=== PATIENT | female | born 1940 | race African-American/Black ===

== ENCOUNTER 2018-10-29 06:01 | Inpatient (IN) | payer OTHER ==
[~2018-10-29] VITALS: Ht 167.6 cm; Wt 136.1 kg
--- NOTE | ~2018-10-29 | 2DMMODE ---
[facility] [address] [place] [address] 2 D/M-MODE ECHOCARDIOGRAM Name: [place] Room #: 451-P [facility] IN .R.#: [id number] Admission: 10/29/18 Attend Phys: Timothy Garcia, Discharge: Date of : 36 Date of Service: 10/30/18 1034 Report #: [id number] THIS REPORT FOR: //name// APPROVED REPORT Study performed: 10/30/2018 08:28:54 EXAM: Comprehensive 2D, Doppler, and color-flow Echocardiogram Patient Location: In-Patient Room #: 451 Status: routine BSA: 2.35 HR: 70 bpm BP: 138/86 mmHg Other Information Study Quality: Adequate/Technically Difficult Technically limited study due to body habitus. Indications Congestive Heart Failure COPD Diabetes Hypertension/HDD SOA 2D Dimensions RVDd: 48.61 mm IVSd: 17.49 (7-11mm) LVOT Diam: 24.21 (18-24mm) LVDd: 45.41 mm PWd: 17.04 (7-11mm) Ascending Ao: 34.08 (22-36mm) LVDs: 34.73 (25-40mm) Aortic Root: 37.41 mm IVC: 25.00 mm Volumes Left Atrial Volume (Systole) Single Plane 4CH: 45.00 mL Single Plane 2CH: 46.13 mL LA ESV Index: 20.00 mL/m2 Aortic Valve AoV Peak Segun.: 1.19 m/s AO Peak Gr.: 5.67 mmHg LVOT Max P.83 mmHg LVOT Max V: 0.84 m/s VICKEY Vmax: 3.25 cm2 [facility] [address] [address] 2 D/M-MODE ECHOCARDIOGRAM Name: SKANEE, [place] Room #: 451-P [facility] IN ..#: [id number] Admission: 10/29/18 Attend Phys: Timothy Garcia, Discharge: Date of : 36 Date of Service: 10/30/18 1034 Report #: [id number] Vmax: 4.55 m/s AI [place]: 3.05 m/s2 AI PHT: 433.24 ms Mitral Valve E/A Ratio: 0.6 MV Decel. Time: 176.90 ms MV E Max Segun.: 0.58 m/s MV A Segun.: 0.98 m/s MV PHT: 51.30 ms IVRT: 152.25 ms Pulmonary Valve PV Peak Segun.: 0.69 m/s PV Peak Gr.: 1.94 mmHg Pulmonary Vein P Vein S: 0.46 m/s P Vein A: 0.37 m/s P Vein D: 0.62 m/s P Vein A Dur.: 152.2 msec P Vein S/D Ratio: 0.74 Tricuspid Valve TR Peak Segun.: 4.14 m/s RAP Estimate: 10.00 mmHg TR Peak Gr.: 68.49 mmHg PA Pressure: 79.00 mmHg Left Ventricle The left ventricle is normal size. Moderate concentric left ventricular hypertrophy. The left ventricular systolic function is normal. The left ventricular ejection fraction is within the normal range. LVEF is 55%. Transmitral Doppler flow pattern suggests impaired LV relaxation. Right Ventricle Right ventricle is dilated. The right ventricular systolic function is normal. Atria The left atrium size is normal. Right atrium is dilated. Aortic Valve The aortic valve is normal in structure. Mild to moderate aortic regurgitation. There is no aortic valvular stenosis. Mitral Valve The mitral valve is normal in structure. Trace mitral regurgitation. No evidence of mitral valve stenosis. [facility] [address] [place] [address] 2 D/M-MODE ECHOCARDIOGRAM Name: SKANEE, [place] Room #: 451-P [facility] IN .R.#: [id number] Admission: 10/29/18 Attend Phys: Timothy Garcia, Discharge: Date of : 36 Date of Service: 10/30/18 1034 Report #: [id number] Tricuspid Valve The tricuspid valve is normal in structure. Trace to mild tricuspid regurgitation. PAP is estimated at 79 mmHg. Pulmonic Valve Pulmonic valve is not well visualized. Trace to mild pulmonic regurgitation. Great Vessels The aortic root is normal in size. IVC is dilated and collapses >50% with inspiration. Pericardium There is no pericardial effusion. <Conclusion> The left ventricle is normal size. LVEF is 55%. Right ventricle is dilated. Right atrium is dilated. The aortic valve is normal in structure. Mild to moderate aortic regurgitation. The mitral valve is normal in structure. Trace mitral regurgitation. The tricuspid valve is normal in structure. Trace to mild tricuspid regurgitation. PAP is estimated at 79 mmHg. Pulmonic valve is not well visualized. Trace to mild pulmonic regurgitation. There is no pericardial effusion. <ELECTRONICALLY SIGNED> By: Emanuel Haley MD 10/30/18 1034 1034 1034 Emanuel Haley MD /INF
--- NOTE | ~2018-10-29 | EKG ---
[address] [address] ELECTROCARDIOGRAM REPORT Name: HUGO DUMONT Room #: 451-P ADM IN M.R.#: [id number] Admission: 10/29/18 Attend Phys: Timothy Garcia MD Discharge: Date of : 36 Report #: [id number] THIS REPORT FOR: //name// [facility] ED Test Date: 2018-10-29 Test Time: 06:40:12 Pat Name: HUGO DUMONT Department: Room: [facility] Gender: F Armored Car Guard: GISEL : 1940 Requested By: Sonido Covington Order Number: [id number] MD: Hesham Banuelos Measurements Intervals [place] Rate: 80 P: -38 IA: 170 QRS: 22 QRSD: 114 T: 0 QT: 383 QTc: 442 Interpretive Statements Sinus rhythm Borderline intraventricular conduction delay Borderline T abnormalities, diffuse leads No previous ECG available for comparison Electronically Signed On 10-29-2018 10:31:07 JEWISH HISTORY PROFESSOR by Hesham Banuelos [email or web address] <ELECTRONICALLY SIGNED> By: Hesham Banuelos MD 10/29/18 1031 0640 0640 Hesham Banuelos MD /MADIHA
[2018-10-29 06:02] VITALS: BP 175/89
[2018-10-29] MEDS ORDERED: METFORMIN HCL500 MG PO (06:46)
[2018-10-29] MEDS ORDERED: ASPIR 8181 MG PO (06:47)
[2018-10-29] MEDS ORDERED: ZOLOFT25 MG PO (06:47)
[2018-10-29] MEDS ORDERED: COREG6.25 MG PO (06:48)
[2018-10-29] MEDS ORDERED: SILDENAFIL20 MG PO (06:49)
[2018-10-29] MEDS ORDERED: LISINOPRIL20 MG PO (06:49)
[2018-10-29] MEDS ORDERED: LASIX 40 MG TAB40 M2 PO (06:50)
[2018-10-29] MEDS ORDERED: NORVASC2.5 MG PO (06:52)
[2018-10-29 07:02] LABS: ABSOLUTE NEUTROPHILS 7.9 thou/uL (1.4-8.2); BASOPHILS 0.5 % (0.0-2.0); EOSINOPHILS 2.2 % (0.0-3.0); HEMOGLOBIN 12.9 gm/dL (12.0-15.0); LYMPHOCYTES 10.9 % (24.0-44.0); MCHC 31.4 g/dL (28.0-37.0); MCV 89.2 fL (80.0-100.0); MONOCYTES 6.8 % (1.0-8.0); POLYS 79.6 % (36.0-66.0); RBC 4.59 mil/uL (4.20-5.00); RDW 16.7 % (10.5-14.5); WBC 9.9 thou/uL (4.0-11.0)
[2018-10-29 07:04] LABS: URINE BILIRUBIN NEGATIVE (Negative); URINE BLOOD NEGATIVE (Negative); URINE CLARITY CLEAR; URINE COLOR YELLOW; URINE GLUCOSE-RANDOM* 1+ (Negative); URINE KETONES NEGATIVE (Negative); URINE LEUKOCYTES-REFLEX NEGATIVE (Negative); URINE NITRITE-REFLEX NEGATIVE (Negative); URINE PROTEIN (DIPSTICK) NEGATIVE (Negative); URINE UROBILINOGEN 0.2 E.U./dl (0.2-1.0)
[2018-10-29 07:10] LABS: ANION GAP 1 mmol/L (7-16); BUN 18 mg/dL (7-18); CALCIUM 9.7 mg/dL (8.5-10.1); CHLORIDE 102 mmol/L (98-107); CO2 36 mmol/L (21-32); CREATININE 0.8 mg/dL (0.6-1.0); GLUCOSE 268 mg/dL (74-106); POTASSIUM 4.9 mmol/L (3.5-5.1); SODIUM 139 mmol/L (136-145)
[2018-10-29 07:18] LABS: ALBUMIN 3.1 g/dL (3.4-5.0); SGOT 19 U/L (15-37); SGPT 40 U/L (30-65); TOTAL BILIRUBIN 0.2 mg/dL (<0.1-1.0); TROPONIN-I <0.06 ng/mL (<0.06)
[2018-10-29 08:16] LABS: PLATELET COUNT 185 thou/uL (150-400)
[2018-10-29 08:17] LABS: ANISOCYTOSIS 1+
[2018-10-29] MEDS ORDERED: LEVAQUIN 500 M500 MG PO (08:40)
[2018-10-29 09:26] VITALS: BP 183/74
[2018-10-29 09:54] VITALS: BP 182/78
[2018-10-29 11:00] LABS: ALBUMIN 3.1 g/dL (3.4-5.0)
[2018-10-29 11:26] LABS: TSH 2.065 uIU/mL (0.358-3.740)
[2018-10-29 16:00] VITALS: BP 156/75
[2018-10-29 19:41] VITALS: BP 139/45
[2018-10-30 03:31] VITALS: BP 138/86
[2018-10-30 04:24] LABS: CALCIUM 9.3 mg/dL (8.5-10.1); CREATININE 0.9 mg/dL (0.6-1.0); MAGNESIUM 1.7 mg/dL (1.8-2.4); POTASSIUM 4.2 mmol/L (3.5-5.1)
[2018-10-30 04:26] LABS: HEMATOCRIT 38.5 % (37.0-47.0); MCH 27.7 pg (26.0-34.0); MCHC 31.3 g/dL (28.0-37.0); MCV 88.5 fL (80.0-100.0); RBC 4.34 mil/uL (4.20-5.00); RDW 16.2 % (10.5-14.5)
[2018-10-30 08:21] VITALS: BP 135/80
[2018-10-30 14:51] VITALS: BP 132/55
[2018-10-30 19:33] VITALS: BP 127/95
[2018-10-31 03:26] VITALS: BP 136/36
[2018-10-31 06:16] LABS: HEMATOCRIT 36.3 % (37.0-47.0); HEMOGLOBIN 11.5 gm/dL (12.0-15.0); MCH 27.8 pg (26.0-34.0); MCHC 31.8 g/dL (28.0-37.0); MCV 87.4 fL (80.0-100.0); RBC 4.15 mil/uL (4.20-5.00); RDW 15.7 % (10.5-14.5); WBC 8.9 thou/uL (4.0-11.0)
[2018-10-31 06:27] LABS: CALCIUM 9.2 mg/dL (8.5-10.1); CREATININE 0.9 mg/dL (0.6-1.0); MAGNESIUM 1.9 mg/dL (1.8-2.4); POTASSIUM 4.2 mmol/L (3.5-5.1)
[2018-10-31 07:23] VITALS: BP 119/48
[2018-10-31 15:32] VITALS: BP 118/45
[2018-10-31 19:00] VITALS: BP 111/54
[2018-11-01 03:18] VITALS: BP 132/62
[2018-11-01 04:32] LABS: CALCIUM 9.3 mg/dL (8.5-10.1); MAGNESIUM 1.8 mg/dL (1.8-2.4); POTASSIUM 4.5 mmol/L (3.5-5.1)
[2018-11-01 04:44] LABS: HEMATOCRIT 37.6 % (37.0-47.0); HEMOGLOBIN 11.5 gm/dL (12.0-15.0); MCH 27.1 pg (26.0-34.0); MCHC 30.4 g/dL (28.0-37.0); MCV 88.9 fL (80.0-100.0); RBC 4.24 mil/uL (4.20-5.00); RDW 15.6 % (10.5-14.5); WBC 8.1 thou/uL (4.0-11.0)
[2018-11-01 07:05] VITALS: BP 107/95
[2018-11-01] MEDS ORDERED: LASIX 40 MG TAB40 M2 PO (13:50)
[2018-11-01 14:55] VITALS: BP 111/57
== END 2018-11-01 16:46 | DRG 193 ==
LOC: ER 06:01 → EDSEX 06:01 → EDBD 06:01 → 4W 08:56 → EROBS 08:56 → 4W 10:11
PROVIDERS: Emergency Medicine; Internal Medicine
DX: J18.9 Pneumonia, unspecified organism (principal); J96.21 Acute and chronic respiratory failure with hypoxia; J44.0 Chronic obstructive pulmonary disease with (acute) lower respiratory infection; J98.11 Atelectasis; I50.30 Unspecified diastolic (congestive) heart failure; E11.9 Type 2 diabetes mellitus without complications; I11.0 Hypertensive heart disease with heart failure; F32.9 Major depressive disorder, single episode, unspecified; M62.84 Sarcopenia; I27.20 Pulmonary hypertension, unspecified; E83.42 Hypomagnesemia; E53.8 Deficiency of other specified B group vitamins; Z87.891 Personal history of nicotine dependence; Z99.81 Dependence on supplemental oxygen; Z79.82 Long term (current) use of aspirin; Z79.84 Long term (current) use of oral hypoglycemic drugs; Z79.899 Other long term (current) drug therapy
CPT/HCPCS: 10045

== ENCOUNTER 2019-08-13 02:19 | Inpatient (IN) | payer OTHER ==
[2019-08-13] VITALS (8 sets, daily range): BP systolic 99–144; BP diastolic 50–76
[~2019-08-13] VITALS: Ht 165.1 cm; Wt 140.1 kg
[~2019-08-13 02:19] MED LIST: ASPIR 8181 MG PO; COREG6.25 MG PO; LASIX 40 MG TAB40 M2 PO; LEVAQUIN 500 M500 MG PO; LISINOPRIL20 MG PO; METFORMIN HCL500 MG PO; NORVASC2.5 MG PO; SILDENAFIL20 MG PO; ZOLOFT25 MG PO
[2019-08-13] MEDS ORDERED: LIPITOR 20 MG T20 M1 PO (02:38)
[2019-08-13] MEDS ORDERED: ADVAIR HFA 230M12 GM INH (02:39)
[2019-08-13] MEDS ORDERED: INCRUSE ELLI62.5 MCG INH (02:40)
[2019-08-13] MEDS ORDERED: MELATONIN5 M1 PO (02:41)
[2019-08-13] MEDS ORDERED: SALINE MIST44 ML INH (02:42)
[2019-08-13] MEDS ORDERED: LANTUS100 UNIT/M SUBQ (02:43)
[2019-08-13] MEDS ORDERED: MIDODRINE HCL 55 M1 PO (02:44)
[2019-08-13] MEDS ORDERED: BIOFREEZE118 ML TOP (02:46)
[2019-08-13] MEDS ORDERED: VITAMIN A & D OI5 GM TOP (02:46)
[2019-08-13 02:47] LABS: ABSOLUTE NEUTROPHILS 8.1 thou/uL (1.4-8.2); BASOPHILS 0.7 % (0.0-2.0); EOSINOPHILS 0.9 % (0.0-3.0); HEMATOCRIT 39.8 % (37.0-47.0); HEMOGLOBIN 12.1 gm/dL (12.0-15.0); LYMPHOCYTES 12.8 % (24.0-44.0); MCH 28.2 pg (26.0-34.0); MCHC 30.5 g/dL (28.0-37.0); MCV 92.6 fL (80.0-100.0); MONOCYTES 7.4 % (1.0-8.0); PLATELET COUNT 225 thou/uL (150-400); POLYS 78.2 % (36.0-66.0); RDW 17.7 % (10.5-14.5); WBC 10.3 thou/uL (4.0-11.0)
[2019-08-13] MEDS ORDERED: EUCERIN ECZEMA226 GM TOP (02:47)
[2019-08-13] MEDS ORDERED: POTASSIUM20 PO (02:48)
[2019-08-13] MEDS ORDERED: ALBUTEROL2.5 MG/3 M INH (02:49)
[2019-08-13 02:50] LABS: HCO3 28.3 mmol/L (22.0-26.0); PCO2 51.4 mmHg (35.0-45.0); PO2 98.2 mmHg (80.0-100.0); pH 7.359 (7.360-7.450); sO2 97.1 % (92.0-98.0)
[2019-08-13] MEDS ORDERED: MYVITALIFE1 EACH PO (02:50)
[2019-08-13] MEDS ORDERED: VITAMINC500 PO (02:50)
[2019-08-13] MEDS ORDERED: PROAIR HFA8.5 GM (02:52)
[2019-08-13 02:54] LABS: CALCIUM 9.4 mg/dL (8.5-10.1); CREATININE 1.8 mg/dL (0.6-1.0); POTASSIUM 5.1 mmol/L (3.5-5.1)
[2019-08-13] MEDS ORDERED: HUMALOG100 UNIT/1 SUBQ (02:54)
[2019-08-13] MEDS ORDERED: MIRALAX17 GM PO (02:55)
[2019-08-13] MEDS ORDERED: SENNA8.6 MG PO (02:55)
[2019-08-13] MEDS ORDERED: TYLENOL EXTRA500 MG PO (02:57)
[2019-08-13] MEDS ORDERED: TYLENOL325 MG PO (02:58)
[2019-08-13] MEDS ORDERED: METOLAZONE 2.52.5 M1 PO (02:59)
[2019-08-13 03:03] LABS: TROPONIN-I 0.07 ng/mL (<0.06)
[2019-08-13 04:38] LABS: ANISOCYTOSIS 2+
--- NOTE | 2019-08-13 07:20 | NUR ---
PT ARRIVED UNIT at about 0545. PT A/OX4, VITAL SIGNS STABLE, ON 5 L O2, ASSESSMENT CHARTED. PT SEEMED TO BE DOING BETTER AND DID NOT NEED THE BIPAP. ADMISSION COMPLETED, PT RESTING COMFORTABLY IN BED.
--- NOTE | 2019-08-13 08:02 | EKG ---
[address] [place] [address] ELECTROCARDIOGRAM REPORT Name: HUGO DUMONT Room #: 216-P ADM IN M.R.#: [id number] ������������������ Admission: 08/13/19 ������������������ Attend Phys: Jaguar Sandoval MD Discharge: ������������������ Date of : 36 Report #: [id number] ����������������������������������������������������������������� [id number] THIS REPORT FOR: //name// [facility] ED Test Date: 2019-08-13 Test Time: 02:37:08 Pat Name: HUGO DUMONT Department: Room: 216 Gender: F School Bus Dispatcher: ELISSA : 1940 Requested By: Sonido Woods Order Number: [id number] MD: Paul Lopez Measurements Intervals [place] Rate: 82 P: -23 HI: 153 QRS: 132 QRSD: 113 T: -19 QT: 414 QTc: 484 Interpretive Statements Sinus rhythm Atrial premature complex Borderline intraventricular conduction delay Consider right ventricular hypertrophy Borderline T abnormalities, anterior leads Borderline prolonged QT interval Baseline wander in lead(s) V2 Compared to ECG 10/29/2018 06:40:12 Atrial premature complex(es) now present T-wave abnormality still present Electronically Signed On 08-13-2019 8:02:16 CDT by Paul Lopez [email or web address] ��������������������������������������������� <ELECTRONICALLY SIGNED> ���������������������������������������� By: Paul Lopez MD ��������������������������������������������� 08/13/19 0802 6 6 Paul Lopez MD /EPI
--- NOTE | 2019-08-13 11:11 | 2DMMODE ---
[facility] [address] [place] [address] 2 D/M-MODE ECHOCARDIOGRAM Name: [place], [place] Room #: 216-P ADM IN M.R.#: [id number] ������������� Admission: 08/13/19 ������������� Attend Phys: Jaguar Sandoval MD Discharge: ��� ������������� ��� Date of : 36 Date of Service: 08/13/19 1111 �� Report #: [id number] �������� ��������������������������������������������[id number] THIS REPORT FOR: //name// APPROVED REPORT Study performed: 08/13/2019 10:00:03 EXAM: Comprehensive 2D, Doppler, and color-flow Echocardiogram Patient Location: Bedside Room #: 216 Status: routine BSA: 2.26 HR: 81 bpm BP: 144/62 mmHg Rhythm: NSR Other Information Study Quality: Fair Technically limited study due to body habitus. Indications Congestive Heart Failure COPD Pulmonary Hypertension Diabetes Dyspnea 2D Dimensions RVDd: 59.82 mm IVSd: 18.97 (7-11mm) LVOT Diam: 23.59 (18-24mm) LVDd: 34.62 mm PWd: 18.42 (7-11mm) Ascending Ao: 35.66 (22-36mm) LVDs: 25.58 (25-40mm) Aortic Root: 40.18 mm IVC: 31.00 mm Volumes Left Atrial Volume (Systole) Single Plane 4CH: 70.31 mL Single Plane 2CH: 65.57 mL LA ESV Index: 33.00 mL/m2 Aortic Valve AoV Peak Segun.: 1.23 m/s AO Peak Gr.: 6.32 mmHg LVOT Max P.06 mmHg LVOT Max V: 0.87 m/s [facility] [address] [place] [address] 2 D/M-MODE ECHOCARDIOGRAM Name: SUCCESS, [place] Room #: 216-P ADM IN .R.#: [id number] ������������� Admission: 08/13/19 ������������� Attend Phys: Jaguar Sandoval MD Discharge: ��� ������������� ��� Date of : 36 Date of Service: 08/13/19 1111 �� Report #: [id number] �������� ��������������������������������������������[id number] VICKEY Vmax: 3.09 cm2 Mitral Valve E/A Ratio: 0.7 MV Decel. Time: 226.43 ms MV E Max Segun.: 0.56 m/s MV A Segun.: 0.83 m/s MV PHT: 65.67 ms IVRT: 138.41 ms Pulmonary Valve PV Peak Segun.: 0.80 m/s PV Peak Gr.: 2.59 mmHg Pulmonary Vein P Vein S: 0.30 m/s P Vein A: 0.26 m/s P Vein D: 0.18 m/s P Vein A Dur.: 96.9 msec P Vein S/D Ratio: 1.67 Tricuspid Valve TR Peak Segun.: 4.17 m/s TR Peak Gr.: 69.64 mmHg PA Pressure: 80.00 mmHg Left Ventricle The left ventricle is normal size. There is normal LV segmental wall motion. Mild concentric left ventricular hypertrophy. The left ventricular systolic function is normal. The left ventricular ejection fraction is within the normal range. LVEF is 55-60%. Grade I - abnormal relaxation pattern. Right Ventricle Right ventricle is dilated. The right ventricular systolic function is normal. Atria Left atrium is at the upper limits of normal. Right atrium is dilated. Aortic Valve The aortic valve is normal in structure. Trace to mild aortic regurgitation. There is no aortic valvular stenosis. Mitral Valve The mitral valve is normal in structure. Trace to mild mitral regurgitation. No evidence of mitral valve stenosis. [facility] [address] [place] [address] 2 D/M-MODE ECHOCARDIOGRAM Name: SUCCESS, [place] Room #: 216-P ADM IN M.R.#: [id number] ������������� Admission: 08/13/19 ������������� Attend Phys: Jaguar Sandoval MD Discharge: ��� ������������� ��� Date of : 36 Date of Service: 08/13/19 1111 �� Report #: [id number] �������� ��������������������������������������������[id number] Tricuspid Valve The tricuspid valve is normal in structure. There is moderate tricuspid regurgitation. Estimated PAP 80 mmmHg. There is severe pulmonary hypertension. Pulmonic Valve The pulmonary valve is normal in structure. Trace pulmonic regurgitation. Great Vessels The aortic root is normal in size. IVC is dilated and collapses <50% with inspiration. Pericardium There is no pericardial effusion. <Conclusion> The left ventricle is normal size. LVEF is 55-60%. Right ventricle is enlarged. The right ventricular systolic function is normal. Right atrium is dilated. The aortic valve is normal in structure. Trace to mild aortic regurgitation. The mitral valve is normal in structure. Trace to mild mitral regurgitation. The tricuspid valve is normal in structure. There is moderate tricuspid regurgitation. Estimated PAP 80 mmmHg. There is severe pulmonary hypertension. The pulmonary valve is normal in structure. Trace pulmonic regurgitation. There is no pericardial effusion. ��������������������������������������������� <ELECTRONICALLY SIGNED> ���������������������������������������� By: Emanuel Haley MD ��������������������������������������������� 08/13/19 1111 1111 1111 Emanuel Haley MD /INF
--- NOTE | 2019-08-13 16:18 | NUR ---
FAXED CLINICAL UPDATE TO [facility] SPOKE WITH JENNYFER IN ADM SHE RECEIVED UPDATE. DCP TO FOLLOW.
--- NOTE | 2019-08-13 17:18 | NUR ---
met with patient who is A/Ox4. She resides in ltc at [facility], she uses oxygen at facility. Left message with son Tom regarding to call [employer]em[employer]. Plan return to once stable.
[2019-08-14 00:32] VITALS: BP 99/58
[2019-08-14 04:33] VITALS: BP 126/46
--- NOTE | 2019-08-14 05:12 | NUR ---
ASSUMED PT CARE AT 1900. PT IS ALERT AND ORINETED WITH NO SIGN OF DISTRESS NOTED IN PT. PT IS SITTING IN CHAIR RESTING COMFORTABLY. TYELENOL ADMINISTERED FOR COMPLAINTS OF PAIN. ASSESSMENT COMPLETED AND CHARTED. SCHEDULED MEDS ADMINISTERED TO PT. PT TOLERATED PO INTAKE. PT IS TRANSFERED FROM CHAIR TO BED. BIPAP IS PLACED ON PT BEFORE BEDTIME. PT IS STABLE THROUGHOUT THE NIGHT. NO FURTHER NEEDS AT THIS TIME.
[2019-08-14 05:50] LABS: ABSOLUTE NEUTROPHILS 5.2 thou/uL (1.4-8.2); BASOPHILS 0.6 % (0.0-2.0); EOSINOPHILS 3.9 % (0.0-3.0); HEMATOCRIT 34.7 % (37.0-47.0); HEMOGLOBIN 10.6 gm/dL (12.0-15.0); LYMPHOCYTES 17.2 % (24.0-44.0); MCH 28.2 pg (26.0-34.0); MCHC 30.6 g/dL (28.0-37.0); MCV 92.1 fL (80.0-100.0); MONOCYTES 8.1 % (1.0-8.0); PLATELET COUNT 194 thou/uL (150-400); POLYS 70.2 % (36.0-66.0); RBC 3.77 mil/uL (4.20-5.00); RDW 16.6 % (10.5-14.5); WBC 7.5 thou/uL (4.0-11.0)
[2019-08-14 06:11] LABS: CALCIUM 9.3 mg/dL (8.5-10.1); CREATININE 1.5 mg/dL (0.6-1.0); POTASSIUM 4.4 mmol/L (3.5-5.1)
[2019-08-14 08:15] VITALS: BP 109/61
--- NOTE | 2019-08-14 10:07 | NUR ---
ASSUMED CARE OF PT APPROX 0715, SHE IS A&0X4, AMB CLOSE SBA D/T WEAKNESS AND BLE EDEMA. DIURESING SO FREQ URINATION. RETRIEVING LARGER BSC FOR PT'S COMFORT ONE IN ROOM IN EXTRA SMALL. SHE USES CALL LIGHT FOR NEEDS AND IS CARDIAC MONITORED. WILL CONTINUE TO MONITOR. SEE SEPARATE INTERVENTIONS FOR ASSESSMENTS. ENCOURAGED PT TO USE CALL LIGHT FOR ANY NEEDS
[2019-08-14 11:17] VITALS: BP 107/49
--- NOTE | 2019-08-14 13:52 | NUR ---
Spoke with son cont plan return to [facility] once stable.
[2019-08-14 16:25] VITALS: BP 116/60
[2019-08-14 19:17] VITALS: BP 118/59
[2019-08-15 04:16] VITALS: BP 118/56
[2019-08-15 06:44] LABS: CREATININE 1.4 mg/dL (0.6-1.0); POTASSIUM 4.4 mmol/L (3.5-5.1)
[2019-08-15 07:45] VITALS: BP 150/75
--- NOTE | 2019-08-15 09:56 | NUR ---
PT ASSTED UP TO BSC PRN, PLACED ON BIPAP AT HS, RESTED COMFORTABLY EXCEPT FOR C/O BILATERAL SHOULDER PAIN SHE STATES IS CHRONIC, PRN TYLENOL GIVEN, VSS, LE WRAPPED IN GAUZE AND IRMA WRAPS, REPORT GIVEN TO NEXT SHIFT TO CON'T WITH PPOC.
[2019-08-15 11:00] VITALS: BP 104/57
--- NOTE | 2019-08-15 16:08 | NUR ---
ASSUMMED PT CARE AT APPROXIMATELY 0700. ASSESSMENT CHARTED. A&O X4. FALL PRECAUTIONS IN PLACE. VITAL SIGNS STABLE. BLOOD SUGARS STABLE. PT DENIES BEING SOB. PT DENIES HAVING CHEST PAIN. PT STATED HER SHOULDER HAD ACUTE PAIN. PT RECEIVED ANALGESICS AND PT STATED ANALGESICS RELIEVED PAIN. PT EDUCATED ON POC. PT STATED UNDERSTANDING AND DENIED FURTHER QUESTIONS. PT UP IN CHAIR THROUGHOUT SHIFT. PT AMBULATES STEADY WITH ASSIST X1. PT RECEIVED CONSULT FOR PT/OT TODAY. PT RECEIVED NEW LYPHEDEMA WRAPS ON LEGS. PT COMFORTABLE IN CHAIR. PT DENIES HAVING FURTHER CONCERNS.
[2019-08-15 17:35] VITALS: BP 110/60
[2019-08-15 20:41] VITALS: BP 108/57
--- NOTE | 2019-08-16 04:49 | NUR ---
Assumed care of pt at 1900. Pt was in chair until 2300. Pt will use BSC with t8pdfeal. Pt tried sleeping in bed with cpap but wanted to go back to chair and she slept thru night. Pt complained of bilateral shoulder pain gave medication and pt had partial pain relief. Will continue to monitor pt and follow poc.
[2019-08-16 05:03] VITALS: BP 101/6
[2019-08-16 05:32] LABS: CALCIUM 9.5 mg/dL (8.5-10.1); CREATININE 1.1 mg/dL (0.6-1.0); POTASSIUM 4.5 mmol/L (3.5-5.1)
[2019-08-16 08:00] VITALS: BP 108/69; BP 119/67
[2019-08-16 12:00] VITALS: BP 99/55
--- NOTE | 2019-08-16 13:40 | NUR ---
FAXED REFERRAL TO [facility] FOR SKILLED STAY THEN TRANSITION BACK TO LTC SPOKE WITH JENNYFER IN ADM SHE RECEIVED REFERRAL AND WILL REVIEW, DCP TO FOLLOW.
--- NOTE | 2019-08-16 14:44 | NUR ---
Admissions at [facility] updated[facility] [place] [employer] to fax update to admissions. They will contact the pt's ins plan for ins auth. PT/OT seeing the pt. Pt getting her bilat lower ext wrapped d/t edema. Pt was getting kerlix and hector wraps to her legs at the SNF. Will follow.
[2019-08-16 14:59] VITALS: BP 108/62
[2019-08-16 16:00] VITALS: BP 128/63
--- NOTE | 2019-08-16 16:36 | NUR ---
FAXED REFERRAL TO SKILLED STAY AT [facility] SPOKE WITH JENNYFER IN ADM SHE RECEIVED REFERRAL AND WILL REVIEW AND TO SUBMIT FOR AUTH IF THEY CAN ACCEPT. DCP TO FOLLOW
--- NOTE | 2019-08-16 17:35 | NUR ---
ASSUMED PT CARE AT APPROXIMATELY 0700. PT A&O X4. FALL PRECAUTIONS IN PLACE. ASSESSMENT CHARTED. VITAL SIGNS STABLE. BLOOD SUGARS STABLE. PT DENIED HAVING CHEST PAIN. PT DENIED HAVING SOB. PT HAD A HEADACHE THROUGHOUT THE DAY. PT RECEIVED ANALGESICS. PT STATED ANALGESICS DECREASED PAIN. PT AMBULATES WITH ASSIST X1-STEADY TO THE COMMODE. PT RECEIVED NEW LYPHEDEMA WRAPS TODAY. PT UP IN CHAIR THROUGHOUT SHIFT. PT EDUCATED ABOUT POC. PT STATED UNDERSTANDING AND DENIED HAVING FURTHER QUESTIONS.
[2019-08-16 19:36] VITALS: BP 113/59
[2019-08-17 04:40] VITALS: BP 108/85
--- NOTE | 2019-08-17 04:41 | NUR ---
ASSUMED PT CARE AT 1900. PT SLEPT IN BED WITH CPAP FOR MAJORITY OF NIGHT WITH NO ISSUE. PT C/O PAIN IN BACK AND SHOULDERS GAVE PAIN MED WITH PARTIAL RELIEF. PT HAS HAD STABLE VS. PT IS PROGRESSING TOWARDS POC AND WILL CONTINUE TO MONITOR
[2019-08-17 05:44] LABS: HEMATOCRIT 38.8 % (37.0-47.0); HEMOGLOBIN 11.8 gm/dL (12.0-15.0); MCH 28.3 pg (26.0-34.0); MCHC 30.4 g/dL (28.0-37.0); MCV 93.2 fL (80.0-100.0); RBC 4.17 mil/uL (4.20-5.00); RDW 17.8 % (10.5-14.5); WBC 7.6 thou/uL (4.0-11.0)
[2019-08-17 06:08] LABS: CALCIUM 9.2 mg/dL (8.5-10.1); CREATININE 1.2 mg/dL (0.6-1.0); MAGNESIUM 1.5 mg/dL (1.8-2.4); POTASSIUM 4.5 mmol/L (3.5-5.1)
[2019-08-17 07:35] VITALS: BP 106/47
[2019-08-17 13:32] VITALS: BP 121/59
--- NOTE | 2019-08-17 15:29 | NUR ---
Possible weekend dc to snf anticipated. All parties updated including the pt's dtr Elaine. [facility] has insurance auth for skilled stay and can accept Tue or Tuesday. They will need report called to [phone] and orders faxed to [phone]. W/c van transport with O2 can be arranged thru [employer] [phone] billable to [facility]. Chart copy and orders will need to be sent with the pt and family notified.
[2019-08-17 16:10] VITALS: BP 109/58
--- NOTE | 2019-08-17 18:00 | NUR ---
ASSUMED CARE OF PT AT SHIFT CHANGE. ASSESSMENTS CHARTED. MEDS GIVEN PER JAN. VSS. A&OX4. C/O HEADACHE TREATED WITH PO MEDS. USES BEDPAN WHILE IN CHAIR. X1 ASSIST. LEGS WRAPPED D/T EDEMA. ON 4L OF O2. NO C/O SOA. WILL CONTINUE TO MONITOR AND FOLLOW POC.
[2019-08-17 20:00] VITALS: BP 115/61
[2019-08-18] VITALS: BP 114/69
[2019-08-18 04:00] VITALS: BP 104/50
--- NOTE | 2019-08-18 05:11 | NUR ---
A/O X 4.UP WITH ASSIST X 1 TO THE BEDSIDE COMMODE.STILL COMPLAIN OF HEADACHE AFTER TYLENOL WAS GIVEN.IBUPROFEN GIVEN ORDERED.PATIENT IS HOPING TO HAVE A BM THIS SHIFT.MIRALAX GIVEN.NO RESULT YET SO FAR.MONITOR SHOWS SR.WILL CONTINUE POC.
[2019-08-18 07:57] VITALS: BP 100/46
--- NOTE | 2019-08-18 08:41 | NUR ---
PT IS A&0X4, WEAK, SWEET, USES CALL LIGHT FOR NEEDS, AMB UNSTEADY W/WALKER AND CLOSE SBA, IS NOT IMPULSIVE. DENIES ANY PAIN AT THIS TIME, SAID SHE MIGHT NEED TYLENOL LATER. ENCOURAGED HER TO USE CALL LIGHT FOR NEEDS, SEE SEPARATE INTERVENTIONS FOR ASSESSMENTS.
[2019-08-18 12:03] VITALS: BP 136/60
[2019-08-18 16:19] VITALS: BP 118/57
--- NOTE | 2019-08-18 17:30 | NUR ---
URINE OUTPUT RECORDED IN QTY. SHE DID APPROX 2300
[2019-08-18 19:45] VITALS: BP 133/66
--- NOTE | 2019-08-19 04:37 | NUR ---
pt resting quietly in room with cpap,vss, prn tylenol given for c/o emmanuel, requested leg wraps to be removed for a break, plan tx to CMNR today.
[2019-08-19 04:45] VITALS: BP 141/84
[2019-08-19 05:03] LABS: BE(vivo) 9.2 mmol/L (-2 to +3); HCO3 36.7 mmol/L (22.0-26.0); PCO2 64.3 mmHg (35.0-45.0); PO2 87.8 mmHg (80.0-100.0); pH 7.374 (7.360-7.450); sO2 96.2 % (92.0-98.0)
[2019-08-19 07:44] VITALS: BP 117/53
[2019-08-19] MEDS ORDERED: PREDNISONE 20 M20 M1 PO (11:33)
[2019-08-19] MEDS ORDERED: IPRAT-ALBUT 0.5-3 ML INH (11:33)
[2019-08-19] MEDS ORDERED: IBUPROFEN 200200 M1 PO (11:33)
[2019-08-19] MEDS ORDERED: LASIX 40 MG TAB40 M1 PO (11:33)
[2019-08-19] MEDS ORDERED: ACETAMINOPHEN325 M1 PO (11:33)
[2019-08-19 11:44] VITALS: BP 151/60
[2019-08-19 16:09] VITALS: BP 139/70
--- NOTE | 2019-08-19 17:30 | NUR ---
ASSUMED CARE OF PT AT SHIFT CHANGE. ASSESSMENTS CHARTED. MEDS GIVEN PER JAN. VSS. A&OX4. X1 ASSIST. USES BSC. 4l O2, TOLERATES MOVING WITHOUT SOA WELL. DISCHARGE ORDERS COMPLETE. CALLED FACILITY 5 TIMES TO GIVE REPORT BUT NO ONE WOULD ANSWER.
== END 2019-08-19 17:25 | DRG 291 ==
LOC: ER 02:19 → 2N 04:51 → EROBS 04:51 → 2N 05:35
PROVIDERS: Emergency Medicine; Internal Medicine; Internal Medicine Pulmonary Disease; ADMIT Hospitalist
PROC: 5A09357 Assistance with Respiratory Ventilation, Less than 24 Consecutive Hours, Continuous Positive Airway Pressure (ICD-10-PCS; principal; 2019-08-13)
PROC: 5A09357 Assistance with Respiratory Ventilation, Less than 24 Consecutive Hours, Continuous Positive Airway Pressure (ICD-10-PCS; 2019-08-14)
PROC: 5A09357 Assistance with Respiratory Ventilation, Less than 24 Consecutive Hours, Continuous Positive Airway Pressure (ICD-10-PCS; 2019-08-15)
PROC: 5A09357 Assistance with Respiratory Ventilation, Less than 24 Consecutive Hours, Continuous Positive Airway Pressure (ICD-10-PCS; 2019-08-17)
PROC: 5A09357 Assistance with Respiratory Ventilation, Less than 24 Consecutive Hours, Continuous Positive Airway Pressure (ICD-10-PCS; 2019-08-18)
PROC: 5A09357 Assistance with Respiratory Ventilation, Less than 24 Consecutive Hours, Continuous Positive Airway Pressure (ICD-10-PCS; 2019-08-19)
DX: I11.0 Hypertensive heart disease with heart failure (principal); J96.21 Acute and chronic respiratory failure with hypoxia; J96.22 Acute and chronic respiratory failure with hypercapnia; N17.9 Acute kidney failure, unspecified; Z68.43 Body mass index [BMI] 50.0-59.9, adult; J98.11 Atelectasis; J44.1 Chronic obstructive pulmonary disease with (acute) exacerbation; E87.0 Hyperosmolality and hypernatremia; I50.33 Acute on chronic diastolic (congestive) heart failure; E11.9 Type 2 diabetes mellitus without complications; F03.90 Unspecified dementia, unspecified severity, without behavioral disturbance, psychotic disturbance, mood disturbance, and anxiety; F32.9 Major depressive disorder, single episode, unspecified; G47.33 Obstructive sleep apnea (adult) (pediatric); E53.8 Deficiency of other specified B group vitamins; E66.01 Morbid (severe) obesity due to excess calories; I27.23 Pulmonary hypertension due to lung diseases and hypoxia; I27.29 Other secondary pulmonary hypertension; I87.2 Venous insufficiency (chronic) (peripheral); G47.00 Insomnia, unspecified; M15.9 Polyosteoarthritis, unspecified; Z99.81 Dependence on supplemental oxygen; Z87.891 Personal history of nicotine dependence; Z79.4 Long term (current) use of insulin; Z79.82 Long term (current) use of aspirin; Z79.84 Long term (current) use of oral hypoglycemic drugs; Z79.899 Other long term (current) drug therapy
CPT/HCPCS: 10081

== ENCOUNTER 2019-08-30 21:53 | Emergency (ER) | payer OTHER ==
[~2019-08-30] VITALS: Ht 182.9 cm; Wt 113.4 kg
--- NOTE | ~2019-08-30 | EMS ---
[facility] [address] [place] [address] EMS Patient Care Report Name: HUGO DUMONT Room #: REG DEBORAH Cuellar#: [id number] Admission: 08/30/19 Attend Phys: Discharge: Date of : 36 Report #: [id number] THIS REPORT FOR: //name// Report Transmitted: 08/30/2019 23:07 EMS Care Summary [place], [place]/[facility] Incident [id number] @ 08/30/2019 21:21 Incident Location [address] Patient HUGO DUMONT Female, 78 Years 1940 Patient Address [address] [place] [address] Patient History Congestive Heart Failure (CHF),Chronic Obstructive Pulmonary Disease (COPD),Diabetes,Hypertension, Patient Allergies No known allergies, Patient Medications Albuterol, ASA, Lasix, Chief Complaint CARDIAC ARREST Disposition Transported [place] Dispatch Reason Cardiac Arrest/ Transported To [facility] Narrative SCENE: ON ARRIVAL PT FOUND SUPINE ON THE FLOOR OF ADDRESS PROVIDED. PT IS PULSELESS AND APNEIC. P36 HAS INITIATED CPR AND BVM VENTILATIONS VIA I GEL. PT [facility] [address] [place] [address] EMS Patient Care Report Name: HUGO DUMONT Room #: MAINE Cuellar#: [id number] Admission: 08/30/19 Attend Phys: Discharge: Date of : 36 Report #: [id number] IS IN ASYSTOLE. IO INITIATED BY PT LEFT LOWER EXTREMITY. EMS THEN BEGAN STEPS TO TRANSFER PT TO STRETCHER FOR TRANSPORT DUE TO PT WEIGHT. PT PLACED ON [place]AM[place], LIFTED THEN PLACED DOWN ONTO LONG BOARD ON TOP OF EMS STRETCHER. AMBULANCE: CPR AND BVM VENTILATIONS CONTINUED THROUGHOUT TRANSPORT. NO CHANGES IN PT STATUS EN ROUTE Initial Vitals @21:33P: 188,R: 12,Pain: 0/10,GCS: 3,Glucose: 488,EtCO2: 35, @21:46P: 149,R: 17,GCS: 3,EtCO2: 20, @21:41P: 164,R: 16,GCS: 3,EtCO2: 44,OK Suspected: false @21:29P: 210,R: 12,Pain: 0/10,GCS: 3,EtCO2: 59, @21:51P: 106,R: 14,GCS: 3,EtCO2: 0, @21:50P: 201,R: 16,GCS: 3,EtCO2: 29, @21:38P: 136,R: 14,GCS: 3,EtCO2: 34,OK Suspected: false Assessments @21:27MENTAL:Unresponsive,SKIN:HEENT:Eyes: Left: Non-Reactive,Head/Face: Other,Eyes: Right: Non-Reactive,Neck/Airway: No Abnormalities,LUNG SOUNDS:General: No Abnormalities,ABDOMEN:General: No Abnormalities,PELVIS//GI:No Abnormalities,EXTREMITIES:Capillary Refill: Right Upper: 3 Sec,Capillary Refill: Right Lower: 3 Sec,Capillary Refill: Left Lower: 3 Sec,Capillary Refill: Left Upper: 3 Sec,Left Arm: No Abnormalities,Right Arm: No Abnormalities,Left Leg: No Abnormalities,Right Leg: No Abnormalities,PULSE:Radial: Absent,Femoral: Absent,Carotid: Absent,NEURO:No Abnormalities,@21:47MENTAL:Unresponsive,SKIN:HEENT:Eyes: Right: Non-Reactive,Eyes: Left: Non-Reactive,LUNG SOUNDS:ABDOMEN:PELVIS//GI:EXTREMITIES:Capillary Refill: Left Lower: 4 Sec,Capillary Refill: Right Upper: 4 Sec,Capillary Refill: Right Lower: 4 Sec,Capillary Refill: Left Upper: 4 Sec,PULSE:Radial: Absent,Femoral: Absent,NEURO: Impression Cardiac arrest Procedures @21:30Epinephrine 1:10 - 1 Milligrams (mg) - Intravenous (IV)Response: Unchanged@PTAResponse: UnchangedSucceeded@21:28Normal Saline (.9% NaCl) 10cc (EZ-IO (Blue 25mm)) Site: MX-Dxhqy-Novn ProximalResponse: UnchangedSucceeded@21:34Normal Saline (.9% NaCl) 700cc () Site: Lower Extremity-LeftResponse: UnchangedSucceeded@PTAiGEL Complications: Patient Vomiting/Aspiration,Response: UnchangedSucceeded@21:34Epinephrine 1:10 - 1 Milligrams (mg) - Intraosseous (IO)Response: Unchanged@21:39Epinephrine 1:10 - 1 Milligrams (mg) - Intraosseous (IO)Response: Unchanged@21:43Epinephrine 1:10 - 1 Milligrams (mg) - Intraosseous (IO)Response: Unchanged@21:48Epinephrine 1:10 - 1 Milligrams (mg) - Intraosseous (IO)Response: [facility] [address] [place] [address] EMS Patient Care Report Name: HUGO DUMONT Room #: REG Polo#: [id number] Admission: 08/30/19 Attend Phys: Discharge: Date of : 36 Report #: [id number] Unchanged@21:45StretcherResponse: Unchanged@21:27ALS AssessmentResponse: UnchangedSucceeded@PTAOxygen FlowRate: 15 Device: Bag Valve Mask (BVM) Response: UnchangedSucceeded Timeline RESEARCH AND EVALUATION ANALYST,Response: UnchangedSucceeded, RESEARCH AND EVALUATION ANALYST,iGEL Complications: Patient Vomiting/Aspiration,,Response: UnchangedSucceeded, RESEARCH AND EVALUATION ANALYST,Oxygen FlowRate: 15 Device: Bag Valve Mask (BVM) Response: UnchangedSucceeded, 21:19,Call Received 21:19,Dispatch Notified 21:21,Dispatched 21:23,En Route 21:26,On Scene 21:27,At Patient 21:27,ALS Assessment,Response: UnchangedSucceeded, 21:28,Normal Saline (.9% NaCl) 10cc EZ-IO (Blue 25mm) Site: IG-Znrky-Mfld Proximal,Response: UnchangedSucceeded, 21:29,BP: / M,PULSE: 210,RR: 12 R,SPO2: Ox,ETCO2: 59 ,BG: ,PAIN: 0,GCS: 3, 21:30,Epinephrine 1:10 - 1 Milligrams (mg) - Intravenous (IV),Response: Unchanged 21:33,BP: / M,PULSE: 188,RR: 12 R,SPO2: Ox,ETCO2: 35 ,B,PAIN: 0,GCS: 3, 21:34,Epinephrine 1:10 - 1 Milligrams (mg) - Intraosseous (IO),Response: Unchanged 21:34,Normal Saline (.9% NaCl) 700cc Site: Lower Extremity-Left,Response: UnchangedSucceeded, 21:38,BP: / M,PULSE: 136,RR: 14 R,SPO2: Ox,ETCO2: 34 ,BG: ,PAIN: ,GCS: 3, 21:39,Epinephrine 1:10 - 1 Milligrams (mg) - Intraosseous (IO),Response: Unchanged 21:41,BP: / M,PULSE: 164,RR: 16 R,SPO2: Ox,ETCO2: 44 ,BG: ,PAIN: ,GCS: 3, 21:43,Epinephrine 1:10 - 1 Milligrams (mg) - Intraosseous (IO),Response: Unchanged 21:45,Stretcher,Response: Unchanged 21:46,BP: / M,PULSE: 149,RR: 17 R,SPO2: Ox,ETCO2: 20 ,BG: ,PAIN: ,GCS: 3, 21:48,Epinephrine 1:10 - 1 Milligrams (mg) - Intraosseous (IO),Response: Unchanged 21:49,Depart Scene 21:49,At Destination 21:50,BP: / M,PULSE: 201,RR: 16 R,SPO2: Ox,ETCO2: 29 ,BG: ,PAIN: ,GCS: 3, 21:51,BP: / M,PULSE: 106,RR: 14 R,SPO2: Ox,ETCO2: 0 ,BG: ,PAIN: ,GCS: 3, 22:03,Call Closed Disclaimer v1.1 Copyright 2019 [employer] This EMS Care Summary contains data elements from the applicable legal record [address] [address] EMS Patient Care Report Name: [place] Room #: REG DEBORAH Cuellar#: [id number] Admission: 08/30/19 Attend Phys: Discharge: Date of : 36 Report #: [id number] (which may be displayed differently). It is designed to provide pertinent information for the following purposes: continuity of care, clinical quality, and state data reporting. The complete legal record is available to ED staff and administrators of the receiving hospital in [facility]'s Patient Tracker. All data is provided "as is."
[2019-08-30 21:53] VITALS: BP 133/86
[~2019-08-30 21:53] MED LIST changes: +ACETAMINOPHEN325 M1 PO; +ADVAIR HFA 230M12 GM INH; +ALBUTEROL2.5 MG/3 M INH; +BIOFREEZE118 ML TOP; +EUCERIN ECZEMA226 GM TOP; +HUMALOG100 UNIT/1 SUBQ; +IBUPROFEN 200200 M1 PO; +INCRUSE ELLI62.5 MCG INH; +IPRAT-ALBUT 0.5-3 ML INH; +LANTUS100 UNIT/M SUBQ; +LASIX 40 MG TAB40 M1 PO; +LIPITOR 20 MG T20 M1 PO; +MELATONIN5 M1 PO; +METOLAZONE 2.52.5 M1 PO; +MIDODRINE HCL 55 M1 PO; +MIRALAX17 GM PO; +MYVITALIFE1 EACH PO; +POTASSIUM20 PO; +PREDNISONE 20 M20 M1 PO; +PROAIR HFA8.5 GM; +SALINE MIST44 ML INH; +SENNA8.6 MG PO; +TYLENOL EXTRA500 MG PO; +TYLENOL325 MG PO; +VITAMIN A & D OI5 GM TOP; +VITAMINC500 PO
== END 2019-08-30 22:04 ==
LOC: ER 21:53
DX: I46.9 Cardiac arrest, cause unspecified (principal); I49.01 Ventricular fibrillation; J44.9 Chronic obstructive pulmonary disease, unspecified; E11.9 Type 2 diabetes mellitus without complications; I11.0 Hypertensive heart disease with heart failure; I50.9 Heart failure, unspecified; E78.5 Hyperlipidemia, unspecified; F32.9 Major depressive disorder, single episode, unspecified; E66.9 Obesity, unspecified; Z68.33 Body mass index [BMI] 33.0-33.9, adult; Z87.891 Personal history of nicotine dependence; Z79.4 Long term (current) use of insulin